=== PATIENT | female | born 1990 | race African-American/Black ===

== ENCOUNTER 2019-01-28 15:39 | Inpatient (IN) | payer MEDICAID ==
[~2019-01-28] VITALS: Ht 177.8 cm; Wt 93.0 kg
[2019-01-28] MEDS ORDERED: DEXT 5%/LR + PITOCIN 20UNITS/L 1,000 ML IV SCH (16:24)
[2019-01-28] MEDS ORDERED: METHYLERGONOVINE MALEATE 0.2 MG/ML IM PRN (16:30)
[2019-01-28] MEDS ORDERED: NALOXONE HCL 0.4 MG/ML 1ML VIAL IM PRN (16:30)
[2019-01-28] MEDS ORDERED: CARBOPROST TROMETHAMINE 250 MCG/ML AMPUL IM PRN (16:30)
[2019-01-28] MEDS ORDERED: LIDOCAINE HCL 1% 20ML VIAL (Pyxis) INJ INFIL SCH (16:30)
[2019-01-28] MEDS ORDERED: ROPIVACAINE HCL/PF EPIDURAL 200 ML EPI SCH (17:15)
[2019-01-28 17:22] LABS: CLARITY URINE CLEAR (CLEAR); COLOR URINE DARK YELLOW (YELLOW); KETONES URINE TRACE (NEGATIVE); LEUKOCYTE ESTERASE URINE 2+ (NEGATIVE); NITRITE URINE NEGATIVE (NEGATIVE); OCCULT BLOOD URINE NEGATIVE (NEGATIVE); PROTEIN URINE 1+ (NEGATIVE); SPECIFIC GRAVITY URINE 1.031 (1.005-1.030)
[2019-01-28] MEDS: LACTATED RINGERS 1,000 ML IV SCH ×2 (17:25→20:04)
[2019-01-28 17:28] LABS: BASOPHILS % 0.3 % (0.0-2.0); EOSINOPHILS % 0.9 % (0.0-5.0); HEMATOCRIT. 37.9 % (36.0-48.0); HEMOGLOBIN. 13.1 g/dL (12.0-16.0); LYMPHOCYTES % 23.9 % (20.0-50.0); MEAN CORPUSCULAR HEMOGLOBIN 32.1 pg (28.0-32.0); MEAN CORPUSCULAR VOLUME 92.5 fL (81.0-99.0); MEAN PLATELET VOLUME 9.3 fl (7.4-10.4); MONOCYTES % 7.8 % (2.0-8.0); NEUTROPHILS % 67.1 % (40.0-76.0); PLATELET 190 x1000/uL (130-400); RED CELL DISTRIBUTION WIDTH 13.1 % (11.6-14.6)
[2019-01-28 17:31] LABS: INR 0.9; PROTHROMBIN TIME 9.4 sec (9.6-11.0)
[2019-01-28 17:44] LABS: *BARBITURATES SCREEN URINE NEGATIVE (NEGATIVE); *BENZODIAZEPINES SCREEN URINE NEGATIVE (NEGATIVE)
[2019-01-28 17:45] LABS: *AMPHETAMINES SCREEN URINE NEGATIVE (NEGATIVE); *COCAINE SCREEN URINE NEGATIVE (NEGATIVE); CANNABINOID URINE SCREEN NEGATIVE (NEGATIVE); METHADONE URINE SCREEN NEGATIVE (NEGATIVE); OPIATES URINE SCREEN NEGATIVE (NEGATIVE); PHENCYCLIDINE URINE SCREEN NEGATIVE (NEGATIVE)
[2019-01-28] MEDS: BUTORPHANOL TARTRATE 2 MG/ML VIAL IM PRN ×2 (18:16→20:15)
[2019-01-28 20:31] LABS: HEPATITIS B SURFACE ANTIGEN NEGATIVE
[2019-01-29] MEDS: BUTORPHANOL TARTRATE 2 MG/ML VIAL IM PRN (01:36)
[2019-01-29] MEDS ORDERED: EPHEDRINE SULFATE 50MG/ML VIAL ONE (04:00)
[2019-01-29] MEDS ORDERED: LIDOCAINE HCL 2%/EPINEPHRINE 1:100,000 20 ML VIAL INFIL ONE (04:00)
[2019-01-29] MEDS ORDERED: DEXT 5%/LR + PITOCIN 20UNITS/L 1,000 ML IV SCH (04:57)
[2019-01-29] MEDS ORDERED: BISACODYL 10MG SUPP PR PRN (05:00)
[2019-01-29] MEDS ORDERED: ACETAMINOPHEN WITH CODEINE 300/30MG TABLET PO PRN ×2 (05:00)
[2019-01-29 06:05] VITALS: BP 131/85
[2019-01-29] MEDS: FERROUS SULFATE 325MG TABLET PO SCH (07:30)
[2019-01-29 08:00] VITALS: BP 130/78
[2019-01-29] MEDS: MAGNESIUM/ALUMINUM HYDROXIDE/SIMETHICONE 30ML UDC PO SCH ×4 (08:31→21:37)
[2019-01-29] MEDS: SIMETHICONE 80MG TABLET CHEW PO SCH ×4 (08:32→21:37)
[2019-01-29] MEDS: PRENATAL VIT/FE FUMARATE/FA TABLET PO SCH (08:32)
[2019-01-29] MEDS: IBUPROFEN 400MG TABLET PO PRN ×2 (08:37→18:16)
[2019-01-29 14:00] LABS: BASOPHILS % 0.1 % (0.0-2.0); EOSINOPHILS % 0.3 % (0.0-5.0); HEMATOCRIT. 34.5 % (36.0-48.0); LYMPHOCYTES % 13.9 % (20.0-50.0); MEAN CORPUSCULAR HEMOGLOBIN 32.3 pg (28.0-32.0); MEAN CORPUSCULAR VOLUME 92.9 fL (81.0-99.0); MEAN PLATELET VOLUME 9.1 fl (7.4-10.4); MONOCYTES % 6.5 % (2.0-8.0); NEUTROPHILS % 79.2 % (40.0-76.0); PLATELET 163 x1000/uL (130-400); RED BLOOD CELL COUNT 3.72 mill/uL (4.2-5.4); RED CELL DISTRIBUTION WIDTH 13.2 % (11.6-14.6)
[2019-01-29 16:00] VITALS: BP 107/70
[2019-01-29 19:30] VITALS: BP 110/80
[2019-01-29] MEDS: DOCUSATE SODIUM 100MG CAPSULE PO SCH (21:36)
[2019-01-30] MEDS: IBUPROFEN 400MG TABLET PO PRN ×3 (00:49→20:26)
[2019-01-30 04:00] VITALS: BP 105/63
[2019-01-30 07:30] VITALS: BP 104/65
[2019-01-30] MEDS: MAGNESIUM/ALUMINUM HYDROXIDE/SIMETHICONE 30ML UDC PO SCH ×4 (09:00→20:25)
[2019-01-30] MEDS: PRENATAL VIT/FE FUMARATE/FA TABLET PO SCH (09:00)
[2019-01-30] MEDS: FERROUS SULFATE 325MG TABLET PO SCH ×3 (09:00→18:17)
[2019-01-30] MEDS: SIMETHICONE 80MG TABLET CHEW PO SCH ×3 (13:47→20:25)
[2019-01-30 16:00] VITALS: BP 109/64
[2019-01-30 20:04] VITALS: BP 109/65
[2019-01-30] MEDS: DOCUSATE SODIUM 100MG CAPSULE PO SCH (20:24)
[2019-01-31 04:00] VITALS: BP 123/60
[2019-01-31 07:45] VITALS: BP 105/58
[2019-01-31] MEDS ORDERED: IBUP-2029 MT (08:48)
== END 2019-01-31 11:50 | disposition home or self-care (01) | DRG 560 ==
LOC: 8 EST LDRP 15:39 → OBSVTOIN 15:39 → 8 EST LDRP 15:48 → 8EST 01-29 05:00
PROVIDERS: ADMIT Obstetrics & Gynecology; ATTEND Obstetrics & Gynecology
PROC: 10E0XZZ Delivery of Products of Conception, External Approach (ICD-10-PCS; principal; 2019-01-29)
PROC: 3E0R3BZ Introduction of Anesthetic Agent into Spinal Canal, Percutaneous Approach (ICD-10-PCS; 2019-01-29)
PROC: 00HU33Z Insertion of Infusion Device into Spinal Canal, Percutaneous Approach (ICD-10-PCS; 2019-01-29)
DX: O48.0 Post-term pregnancy (principal); Z37.0 Single live birth; Z3A.40 40 weeks gestation of pregnancy
CPT/HCPCS: 36415; 80305; 81003; 86592; 86703; 86762; 86850; 86900; 87340; 99281; J0595; J2590; J2795; J3490; J7120